=== PATIENT | male | born 1965 | race Caucasian/White ===

== ENCOUNTER 2021-01-19 03:41 | Inpatient (IN) | payer BC ==
[~2021-01-19] VITALS: Ht 177.8 cm; Wt 120.3 kg
[2021-01-19] MEDS ORDERED: LISINOPRIL20 MG PO (09:16)
[2021-01-19 10:27] LABS: BUN/CREATININE RATIO 11 (0-10)
[2021-01-20 02:51] LABS: HEMOGLOBIN 15.3 gm/dl (14.0-17.5); RED BLOOD COUNT 4.88 M/UL (4.20-5.50); WHITE BLOOD COUNT 6.3 K/UL (4.5-11.0)
[2021-01-20 03:09] LABS: BUN/CREATININE RATIO 16 (0-10)
[2021-01-20] MEDS ORDERED: ATORVASTATIN CA20 MG PO (08:51)
[2021-01-20] MEDS ORDERED: PROTONIX 40 MG40 M1 PO (08:52)
[2021-01-20] MEDS ORDERED: ASPIRIN EC81 MG PO (08:52)
[2021-01-20] MEDS ORDERED: LISINOPRIL40 MG PO (08:52)
== END 2021-01-20 10:59 | disposition home or self-care (01) | DRG 313 ==
LOC: M/S 04:54 → PROG CARE 04:54 → M/S 01-20 00:28
PROVIDERS: Internal Medicine; ADMIT Internal Medicine
DX: R07.89 Other chest pain (principal); I50.32 Chronic diastolic (congestive) heart failure; I20.9 Angina pectoris, unspecified; R00.2 Palpitations; E78.1 Pure hyperglyceridemia; I11.0 Hypertensive heart disease with heart failure; E66.9 Obesity, unspecified; Z20.822 Contact with and (suspected) exposure to COVID-19; K21.9 Gastro-esophageal reflux disease without esophagitis; Z82.49 Family history of ischemic heart disease and other diseases of the circulatory system; Z68.30 Body mass index [BMI] 30.0-30.9, adult
CPT/HCPCS: ECHO; 36415; 78452; 80048; 80053; 82550; 82553; 84439; 84443; 84484; 85027; 85730; 93005; 93017; 93270; 93306; A9502; J1650; J2785

== ENCOUNTER 2021-02-11 07:15 | Emergency (ER) | payer BC ==
[~2021-02-11 07:15] MED LIST: ASPIRIN EC81 MG PO; ATORVASTATIN CA20 MG PO; LISINOPRIL20 MG PO; LISINOPRIL40 MG PO; PROTONIX 40 MG40 M1 PO
[2021-02-11 08:02] LABS: HEMOGLOBIN 16.4 gm/dl (14.0-17.5); RED BLOOD COUNT 5.22 M/UL (4.20-5.50); WHITE BLOOD COUNT 5.3 K/UL (4.5-11.0)
[2021-02-11 08:44] LABS: BUN/CREATININE RATIO 20 (0-10)
== END 2021-02-11 11:29 | disposition home or self-care (01) ==
LOC: ER1 07:15
PROVIDERS: Emergency Medicine
DX: R07.9 Chest pain, unspecified (principal); I10 Essential (primary) hypertension
CPT/HCPCS: 71045; 80053; 82550; 82553; 83690; 83880; 84484; 85025; 93005; 99285